=== PATIENT | female | born 1995 | race African-American/Black ===

== ENCOUNTER 2016-10-27 13:39 | Emergency (ER) | payer SELFPAY ==
[~2016-10-27] VITALS: Ht 170.2 cm; Wt 75.0 kg
[2016-10-27 13:40] VITALS: BP 135/72; PULSE 74; RESP 15; TEMP 97.8; O2SAT 98
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
== END 2016-10-27 15:10 | disposition home or self-care (01) ==
LOC: NEPB 13:39
DX: S60.221A Contusion of right hand, initial encounter (principal); W22.8XXA Striking against or struck by other objects, initial encounter; Y93.89 Activity, other specified; Y92.9 Unspecified place or not applicable; Y99.9 Unspecified external cause status
CPT/HCPCS: 73130; 99283

== ENCOUNTER 2017-08-02 11:23 | Emergency (ER) | payer SELFPAY ==
[~2017-08-02] VITALS: Ht 170.2 cm; Wt 77.0 kg
[2017-08-02 11:49] VITALS: BP 110/72; PULSE 72; RESP 16; TEMP 98.6; O2SAT 99
--- NOTE | 2017-08-02 12:24 | PD ---
HPI Chief Complaint: Bite or Sting Time Seen by Provider: 12:03 Travel History International Travel<30 days: No Contact w/Intl Traveler<30days: No Traveled to known affect area: No History of Present Illness HPI 22-year-old female presents to the emergency department with a laceration to her right ring finger after breaking up a dogfight this morning. Patient states that her dogs were fighting and she tried to pull them apart resulting in this injury. Patient states that the dogs are vaccinated and they are her dogs. She is right-handed. Patient denies numbness but states she does have an unusual sensation to the distal aspect of her finger. Patient denies fever or chills. Denies chronic medical issues or chronic medical conditions. He still has full range of motion of her fingers and describes her pain as mild. She was able to control the bleeding at home. [facility] Past Medical History ?: Not LMP: 07/2017 Social History Alcohol Use: Yes (occ) Tobacco Use: No Substance Use: No Allergies-Medications (Allergen,Severity, Reaction): Coded Allergies: No Known Allergies (Unverified Adverse Reaction, Unknown, 08/02/17) Reported Meds & Prescriptions Reported Meds & Active Scripts Active Augmentin (Amoxicillin-Clavulanate) 875-125 Mg Tab 1 Tab PO BID Review of Systems Except as stated in HPI: all other systems reviewed are Neg Physical Exam Narrative GENERAL: Well-developed well-nourished in no apparent distress SKIN: Focused skin assessment warm/dry. Right Ring finger-3 cm superficial laceration to medial aspect, 1 cm laceration to the dorsal aspect HEAD: Atraumatic. Normocephalic. EYES: Pupils equal and round. No scleral icterus. No injection or drainage. CARDIOVASCULAR: Regular rate and rhythm. No murmur appreciated. RESPIRATORY: No accessory muscle use. Clear to auscultation. Breath sounds equal bilaterally. MUSCULOSKELETAL: No obvious deformities. No clubbing. No cyanosis. No edema. NEUROLOGICAL: Awake and alert. No obvious cranial nerve deficits. Motor grossly within normal limits. Normal speech. PSYCHIATRIC: Appropriate mood and affect; insight and judgment normal. Data Data Last Documented VS Vital Signs Date Time Temp Pulse Resp B/P (MAP) Pulse Ox O2 Delivery O2 Flow Rate FiO2 08/02/17 13:31 08/02/17 11:49 98.6 72 16 99 Orders Orders Lidocaine 1% Inj (50 Ml) (Xylocaine 1% I (08/02/17 12:30) Tetanus/Diphtheria Tox Adult (Tetanus/Di (08/02/17 12:45) Wound Care (08/02/17 12:38) Ed Discharge Order (08/02/17 12:56) [facility] Medical Decision Making Medical Screen Exam Complete: Yes Emergency Medical Condition: Yes Differential Diagnosis dog bite, laceration, avulsion Narrative Course 22-year-old female presents to the emergency department with a laceration to her right ring finger after breaking up a dogfight this morning. Patient states that her dogs were fighting and she tried to pull them apart resulting in this injury. Patient states that the dogs are vaccinated and they are her dogs. She is right-handed. Patient denies numbness but states she does have an unusual sensation to the distal aspect of her finger. Patient denies fever or chills. Denies chronic medical issues or chronic medical conditions. He still has full range of motion of her fingers and describes her pain as mild. She was able to control the bleeding at home. Vital signs stable Physical exam findings consistent with a superficial laceration to the ring finger. Neurovascularly intact. No tendon or ligamental involvement. Digital block performed to assist in the wound care. We will leave the wound open because of the mechanism of injury. Patient will be discharged with Augmentin. Tetanus vaccination administered today. Advised on wound care. Advised follow-up primary care physician within 2-3 days. Advised to return to the emergency department for worsening or persistent symptoms. Diagnosis Primary Impression: Dog bite Qualified Codes: W54.0XXA - Bitten by dog, initial encounter Referrals: Primary Care Physician Patient Instructions: Acute Wound Care (GEN), General Instructions Additional Instructions: Follow up with your primary care physician within 2-3 days. If your symptoms persist or worsen, return to the emergency department. Keep area clean and dry. You may bathe as normal. You may use [id number] triple antibiotic ointments for your injury daily. Change dressings daily. If he developed increased redness, swelling, or pain return to the emergency department. Scripts Amoxicillin-Clavulanate (Augmentin) 875-125 Mg Tab 1 TAB PO BID for Infection, #14 TAB 0 Refills Prov: Magda Persaud 08/02/17 Disposition: 01 DISCHARGE HOME Condition: Stable Magda Persaud Aug 02, 2017 12:24
[2017-08-02] MEDS ORDERED: LIDOCAINE HCL 1% 50 ML VIAL INFIL ONE (12:30)
[2017-08-02] MEDS ORDERED: AUGM875T3 PO (12:43)
[2017-08-02] MEDS ORDERED: TETANUS/DIPHTHERIA TOXOID ADULT 0.5 ML VIAL IM ONE (12:45)
== END 2017-08-02 13:40 | disposition home or self-care (01) ==
LOC: NEPD 11:23
DX: S61.254A Open bite of right ring finger without damage to nail, initial encounter (principal); W54.0XXA Bitten by dog, initial encounter; Z23 Encounter for immunization
CPT/HCPCS: 64450; 90471; 90714